=== PATIENT | female | born 1990 | race Caucasian/White ===

== ENCOUNTER 2018-12-12 15:32 | Emergency (ER) | payer SELFPAY ==
[~2018-12-12] VITALS: Ht 157.5 cm; Wt 53.0 kg
[2018-12-12] MEDS ORDERED: SODIUM CHLORIDE 0.9% 1,000 ML IV ONE (15:41)
[2018-12-12] MEDS ORDERED: ONDANSETRON HCL 4MG/2ML INJ IV STA (15:43)
[2018-12-12] MEDS ORDERED: MORPHINE SULFATE 4 MG/ML CPJ (NOT FOR IM USE) IV STA (15:43)
[2018-12-12] MEDS ORDERED: LIDOCAINE HCL 1% 20ML VIAL (Pyxis) INJ ONE (15:44)
[2018-12-12] MEDS ORDERED: LIDOCAINE 1%/EPI 1:100,000 10 ML VIAL IJ ONE (15:45)
[2018-12-12] MEDS ORDERED: LIDOCAINE HCL/PF 1% 10 MG/ML 5ML VIAL IJ ONE (15:45)
[2018-12-12] MEDS ORDERED: BACITRACIN ZINC OINT UDPKT TOP ONE (15:45)
[2018-12-12] MEDS ORDERED: LIDOCAINE HCL/EPINEPHRINE 1%-EPI 1:100,000 20 ML VIAL ONE (15:45)
[2018-12-12] MEDS ORDERED: TETANUS, DIPHTHERIA, PERTUSSIS VAC/PF 0.5ML (>7YR OLD) IM ONE (15:45)
[2018-12-12] MEDS ORDERED: MORPHINE SULFATE 4 MG/ML CPJ (NOT FOR IM USE) IV ONE (15:45)
[2018-12-12] MEDS ORDERED: ONDANSETRON HCL 4MG/2ML INJ IV ONE (15:45)
[2018-12-12] MEDS ORDERED: CEFAZOLIN 1000MG PREMIX 50 ML IV ONE (16:15)
[2018-12-12 16:45] VITALS: BP 112/50
[2018-12-12 16:45] LABS: BASOPHILS % 0.6 % (0.0-2.0); EOSINOPHILS % 0.9 % (0.0-5.0); HEMATOCRIT. 33.7 % (36.0-48.0); HEMOGLOBIN. 11.2 g/dL (12.0-16.0); LYMPHOCYTES % 36.5 % (20.0-50.0); MEAN CORPUSCULAR HEMOGLOBIN 31.4 pg (28.0-32.0); MEAN CORPUSCULAR VOLUME 94.2 fL (81.0-99.0); MEAN PLATELET VOLUME 9.8 fl (7.4-10.4); MONOCYTES % 5.9 % (2.0-8.0); NEUTROPHILS % 56.1 % (40.0-76.0); PLATELET 259 x1000/uL (130-400); RED BLOOD CELL COUNT 3.58 mill/uL (4.2-5.4); RED CELL DISTRIBUTION WIDTH 13.4 % (11.6-14.6)
[2018-12-12] MEDS ORDERED: CEFAZOLIN 1,000 MG in DEXTROSE 5% WATER 50 ML IV SCH (16:45)
[2018-12-12 16:50] LABS: CHLORIDE 107 mEq/L (98-107)
[2018-12-12 16:53] LABS: PROTHROMBIN TIME 10.8 sec (9.6-11.0)
[2018-12-12 17:06] LABS: HCG SCREEN NEGATIVE
== END 2018-12-12 16:51 | disposition short-term general hospital (02) ==
LOC: ER 16:33
DX: S61.512A Laceration without foreign body of left wrist, initial encounter (principal); S55.102A Unspecified injury of radial artery at forearm level, left arm, initial encounter; W26.8XXA Contact with other sharp object(s), not elsewhere classified, initial encounter; Y93.89 Activity, other specified; Y92.89 Other specified places as the place of occurrence of the external cause; Y99.8 Other external cause status
CPT/HCPCS: 12004; 36415; 80053; 84703; 85025; 85610; 85730; 86850; 86900; 86901; 90471; 90715; 96374; 96375; 96376; 99291; J0690; J2270; J2405; J3490; J7030; J7060